=== PATIENT | male | born 1950 | race Caucasian/White ===

== ENCOUNTER → 2023-12-31 12:57 | Outpatient (REF) | payer MEDICARE, SELFPAY ==
[2023-12-31 13:52] LABS: % Basophils 0.5 % (0-2); % Eosinophils 1.8 % (0-6); % Immature Granulocytes 0.2 % (0-0.5); % Lymphocytes 25.7 % (20.5-51.1); % Monocytes 12.9 % (1.7-9.3); % Neutrophils 58.9 % (42.2-75.2); Absolute Eosinophils 0.1 10^3/uL (0-0.7); Absolute Lymphocytes 1.1 10^3/uL (1.2-3.4); Absolute Monocytes 0.6 10^3/uL (0.1-0.6); Absolute Neutrophils 2.6 10^3/uL (1.4-6.5); Hematocrit 36.5 % (39.0-52.0); Hemoglobin 12.1 g/dL (13.0-18.0); Mean Corp Hgb Conc. 33.2 g/dL (33.0-37.0); Mean Corpuscular Hgb 28.8 pg (27.0-31.0); Mean Corpuscular Volume 86.9 fL (80.0-94.0); Mean Platelet Volume 10.9 fL (7.4-10.4); Nucleated Red Blood Cells % 0 % (-); Platelet Count 116 10^3/uL (130-400); Red Cell Dist. Width 16.2 % (11.5-14.5); White Blood Cell Count 4.4 10^3/uL (4.8-10.8)
[2023-12-31 14:26] LABS: ALT (SGPT) 17 U/L (0-50); AST (SGOT) 23 U/L (17-59); Albumin 3.6 g/dl (3.5-5.0); Alkaline Phosphatase 51 U/L (38-126); Blood Urea Nitrogen 30 mg/dl (9-20); Carbon Dioxide 26 mmol/L (22-30); Chloride 107 mmol/L (98-107); Glucose 83 mg/dl (70-99); Potassium 3.9 mmol/L (3.5-5.1); Sodium 137 mmol/L (135-145); Total Bilirubin 0.7 mg/dl (0.2-1.3); Total Protein 5.8 g/dl (6.3-8.2); eGFR 36.79
[2023-12-31 14:47] LABS: Erythrocyte Sed Rate 9 mm/hour (0-20)
== END ==
LOC: OLABMERCHI 12:57
PROVIDERS: ATTENDING PHYSICIAN Hospitalist
DX: L40.9 Psoriasis, unspecified (principal); M45.2 Ankylosing spondylitis of cervical region
CPT/HCPCS: 36415; 80053; 85025; 85652; 86140

== ENCOUNTER 2024-01-11 23:13 | Inpatient (IN) | payer MEDICARE, SELFPAY ==
[2024-01-11 21:10] VITALS: BMI 22.2
[2024-01-11 21:13] VITALS: BP 179/102
[2024-01-11 21:16] VITALS: BP 165/89
[2024-01-11 21:24] LABS: % Basophils 0.3 % (0-2); % Eosinophils 0.4 % (0-6); % Immature Granulocytes 0.3 % (0-0.5); % Lymphocytes 10.3 % (20.5-51.1); % Monocytes 11.3 % (1.7-9.3); % Neutrophils 77.4 % (42.2-75.2); Absolute Lymphocytes 0.8 10^3/uL (1.2-3.4); Absolute Monocytes 0.8 10^3/uL (0.1-0.6); Absolute Neutrophils 5.8 10^3/uL (1.4-6.5); Hematocrit 37.2 % (39.0-52.0); Hemoglobin 12.5 g/dL (13.0-18.0); Mean Corp Hgb Conc. 33.6 g/dL (33.0-37.0); Mean Corpuscular Hgb 29.1 pg (27.0-31.0); Mean Corpuscular Volume 86.5 fL (80.0-94.0); Mean Platelet Volume 9.4 fL (7.4-10.4); Nucleated Red Blood Cells % 0 % (-); Platelet Count 201 10^3/uL (130-400); White Blood Cell Count 7.5 10^3/uL (4.8-10.8)
[2024-01-11 21:39] LABS: ALT (SGPT) 17 U/L (0-50); AST (SGOT) 21 U/L (17-59); Albumin 4.4 g/dl (3.5-5.0); Alkaline Phosphatase 61 U/L (38-126); Blood Urea Nitrogen 31 mg/dl (9-20); Calcium 9.4 mg/dl (8.4-10.2); Carbon Dioxide 23 mmol/L (22-30); Chloride 100 mmol/L (98-107); Estimated Creatinine Clearance 39 ml/min; Glucose 143 mg/dl (70-99); Potassium 3.9 mmol/L (3.5-5.1); Sodium 135 mmol/L (135-145); Total Bilirubin 0.5 mg/dl (0.2-1.3); Total Protein 6.7 g/dl (6.3-8.2); eGFR 45.21
--- NOTE | 2024-01-11 21:41 | ED.GENMED ---
History of Present Illness
General
Chief Complaint: Male Genito-Urinary Symptoms
Source: patient
Exam Limitations: none
Time Seen by Provider: 01/11/24 21:30
Travel History
Have you had any contact with someone who has COVID-19?: No
Do you have any symptoms of coronavirus? Fever > 100 degrees, chills, cough, shortness of breath, sore throat, loss of taste or smell, muscle aches, or headache?: No
History of Present Illness
History of Present Illness:
This is a 73 year old male that comes in with c/o hematuria. States that he bleed from his Penis all night. States that this started yesterday and has continued. States that he does have burning with urination. States that he has had a catheter in
the past. States that he also has had diarrhea. Denies any fever, chills, chest pain, SOB, abd pain, nasuea, vomiting, headache, dizziness.
Past History
Past History
ED Past Medical History: CAD, Cancer (Prostate CA), HTN, Hypercholesterolemia, NIDDM and Other (Aphasia, Psoriasis, Anemia, Ulcers)
ED Past Surgical History: Cardiac (Stent), Orthopedic (Right knee surgery), Tonsilectomy, Urological (Prostatectomy) and Other (Cataracts, Hernia repair)
Social History
Tobacco: Former smoker
Alcohol: None
Personal: Single
Living: shelter
Review of Systems
Review of Systems
All Other Systems: ROS reviewed and negative except as documented in HPI and ROS
Constitutional: Reports no symptoms; Denies fever or chills
EENT: Reports no symptoms
Respiratory: Reports no symptoms; Denies cough or trouble breathing
Cardiac: Reports no symptoms; Denies chest pain
ABD/GI: Reports diarrhea; Denies abdominal pain, nausea or vomiting
: Reports dysuria and bleeding (Hematuria)
Musculoskeletal: Reports no symptoms
Skin: Reports no symptoms
Neurological: Reports no symptoms; Denies dizzy or headache
Psychiatric: Reports no symptoms
Phy Exam
General Physical Exam
General Presentation: no apparent distress
General age: appears stated age
General Skin: warm and dry
General Habitus: elderly
General Mental: alert
General Hydration: dry mucous membranes
ENT Exam
ENT Exam: TM's normal, pharynx normal and neck supple
Eye Exam
Eye Exam: EOMI
Cardiovascular Exam
Cardiovascular Exam: regular rate/rhythm, no edema, normal peripheral pulses and other (Murmur)
Pulmonary Exam
Pulmonary Exam: lungs clear, no respiratory distress, no rales, chest non tender, no crackles, no rhonchi, no wheezing and no cough
Gastrointestinal Exam
Gastrointestinal Exam: normal bowel sounds, non tender, soft, no pulsatile mass, non distended and other (bladder distention. one finger width below the naval)
Musculoskeletal Exam
Musculoskeletal Exam: full ROM and no edema
Skin Exam
Skin Exam: normal color, warm/dry, no petechia and other (Psoriasis noted on the legs)
Psychiatric Exam
Psychiatric Exam: normal mood/affect
Course
Orders/Labs/Results
Orders:
Orders
01/11/24 21:15
Urinalysis Reflex To Culture Urgent
Date Specimen was Collected: 01/11/24
Time Specimen was Collected: 21:15
01/11/24 21:18
Complete Blood Count/With Diff Urgent
Comprehensive Metabolic Panel Urgent
01/11/24 21:41
Bladder Scan- Treatment ONCE
01/11/24 21:42
0.9% Sodium Chloride 500 ml [Nss] 500 ml IV BOLUS
Abnormal Lab Results
01/11/24
21:18
RBC 4.30 L 10^6/uL
(4.70-6.10)
Hgb 12.5 L g/dL
(13.0-18.0)
Hct 37.2 L %
(39.0-52.0)
RDW 17.0 H %
(11.5-14.5)
Absolute Lymphs (auto) 0.8 L 10^3/uL
(1.2-3.4)
Absolute Monos (auto) 0.8 H 10^3/uL
(0.1-0.6)
Neutrophils % 77.4 H %
(42.2-75.2)
Lymphocytes % 10.3 L %
(20.5-51.1)
Monocytes % 11.3 H %
(1.7-9.3)
BUN 31 H mg/dl
(9-20)
Creatinine 1.6 H mg/dL
(0.7-1.3)
Glucose 143 H mg/dl
(70-99)
01/11/24 21:18
01/11/24 21:18
H/H slightly low but improved from prior labs, Chronic renal insufficiency, Glucose nonfasting.
Vital Signs
Initial and Last Documented VS:
Initial Vital Signs
Temp Pulse Resp BP Pulse Ox
98.5 F 87 18 179/102 95
01/11/24 21:13 01/11/24 21:13 01/11/24 21:13 01/11/24 21:13 01/11/24 21:13
Last Documented Vital Signs
Temp Pulse Resp BP Pulse Ox
98.5 F 87 18 179/102 95
01/11/24 21:13 01/11/24 21:13 01/11/24 21:13 01/11/24 21:13 01/11/24 21:13
MDM/Problems Addressed
Differential Diagnosis Includes:
Hematuria. UTI,
MDM/Problems Addressed:
This is a 73 year old male that comes in with c/o hematuria. states that this started yesterday and he bleed all night.
Will get labs and bladder scan. Three way catheter placed as has urinary retention with gross hematuria. Will admit. Hospitalist notified and patient and family aware.
Chronic conditions affecting care: Cancer (Prostate)
Acute Exacerbation and/or Progression of Chronic Illness: Cancer
*Pulse Oximetry
Patient hypoxic: no
*EKG
Interpreted by ED Provider?: NA
Rate: EKG- N/A
*Map Editor Interpretation
Rate: Map Editor- N/A
*Critical Care Note
Total Time (30-74mins, 75-104mins- exclusive of procedures): Not Applicable
ED Attending Note
-
Portions of this chart may have been created with voice recognition software.� Occasional wrong word or��sound alike� substitutions may have occurred due to the inherent limitations of voice recognition software.
Discharge Plan
Departure
Prescriptions:
No Action
acetaminophen [Tylenol] 325 mg Tablet
650 mg PO Q6HPRN PRN (Reason: mild pain/fever)
dicyclomine 20 mg Tablet
20 mg PO BID@0800,1700
ammonium lactate 12 % Cream
1 applic TOPICAL BID
rosuvastatin [Crestor] 40 mg Tablet
40 mg PO HS
Anti-Itch (menthol-camphor) 0.5-0.5 % Lotion
1 applic TOPICAL QID PRN (Reason: itch)
Rx Instructions:
apply to affected area
sertraline 50 mg Tablet
100 mg PO DAILY
clopidogrel 75 mg tablet
75 mg PO DAILY
loperamide 2 mg Capsule
2 mg PO DAILY
polyethylene glycol 3350 [Miralax] 17 gram Powder In Packet
17 g PO DAILY
ciclopirox 8 % Solution
1 applic TOPICAL DAILY
Rx Instructions:
apply to right first and second toenail
mirtazapine 15 mg Tablet
15 mg PO HS
ketoconazole 2 % cream
1 applic TOPICAL BID
Rx Instructions:
apply to bilateral feet and toes
Healthy Eyes SuperVision2 250-90-10-1 mg Capsule
1 cap PO DAILY
Pedinol
1 applic topical BID
Rx Instructions:
apply to bilateral feet and toes
Referrals:
UNKNOWN - PT DOES,NOT KNOW [Family Provider] -
Interventions
Interventions:
*Risk Screen - Suicide Last Done: 01/11/24 21:14
*General Assessment Last Done: 01/11/24 21:14
*Neglect/Abuse Screening Last Done: 01/11/24 21:14
*ED COVID-19 Vaccine History Last Done: 01/11/24 21:14
[2024-01-11 22:00] VITALS: BP 140/93
[2024-01-11 22:26] LABS: Urine Albumin 3+ (Neg - Trace); Urine Bilirubin Negative (Negative); Urine Character Bloody (Clear); Urine Color Red; Urine Glucose Negative (Negative); Urine Ketone Trace (Negative); Urine Leukocyte Negative (Negative); Urine Nitrite Negative (Negative); Urine Occult Blood 4+ (Negative); Urine Urobilinogen Negative (Neg - 1+)
[2024-01-11 22:28] LABS: Urine Red Blood Cell >100 /HPF (0-2)
[2024-01-11 22:30] LABS: Urine Bacteria Moderate (Negative)
--- NOTE | 2024-01-11 22:44 | HPS.HSE ---
Addendum entered and electronically signed by Marlon Wheeler MD 01/11/24 23:15:
I saw and examined the patient.
The [employer] or PA's note was reviewed and I agree with the note.
Comment:
HPI
73M HX Prostate cancer s/p prostatectomy and salvage XRT , HX admission with hematuria presumed due to plavix pw bleeding frompenis overnight and continued today.
Reports dysuria prior to onset of hematuria.
Denies any fever, chills
Gross hematuric before CBI irrigation at ER - seems clearing with irrigation now punch color
Bladder scan [address]
PHx
CAD with stent
Prostate CA s/p prostatectomy and salvage XRT
HTN
Hypercholesterolemia
NIDDM
Aphasia
Psoriasis
Anemia
Ulcers
Reviewed VS: unremarkable
Data
nl WCC
Hgb 12.5
Cr 1.6 - 1.9 on 12/31/23
UA > 100 RBCs UCx
Last hospitalist admission: 09/07/23 - 09/12/23
DC Dx: Hematuria likely exacerbated by Plavix
ASSESSMENT & PLAN
Recurrence of gross hematuria with urinary retention - last dose of Plavix in the morning
Prostate cancer s/p prostatectomy and salvage radiation therapy: PSA undetectable
Uncertain UTI or what not - afebrile with nl WCC
- Gross hematuric before CBI irrigation at ER - seems clearing with irrigation now punch color
- Bladder scan [address] placement
- held Plavix
- empiric IV CFTX nevertheless
- f/u UCx
- cont CBI
- Uro consult
Suspect obstructive nephropathy due to clot retention with elevated Cr
- normal Creatinine in Aug 2023
- CBI drainage and tend Cr
HX CAD s/p Stent few yrs ago
HX TIA
- held Plavix
Hyperlipidemia
- on Crestor
DMT2
- add ISS low
Anxiety / Depression
- on mirtazapine and sertraline
DVT Px: SCD
Code: Full code
IP MS
Original Note:
Family Physician
-
Family Physician: NOT KNOW UNKNOWN - PT DOES
Chief Complaint
-
Hematuria
History of Present Illness
Patient is a 73 y/o male with PMH of prostate CA, CAD s/p stent and possible TIA on clopidogrel who presented to the ED complaining of gross hematuria since yesterday. Patient was in contact with his urologist who recommended increasing his oral
fluid intake. However patient developed worsening bleeding with associated urinary retention which prompted him to the come to the ED. Patient was found to have 500ml of urine in his bladder at which time a 3-way catheter was placed, and patient
was started on CBI. Patient notes prior to onset of hematuria he did note some dysuria. He denies fevers. He admits to similar episode in August 2023 at which time it was felt hematuria was related to UTI vs radiation cystitis.
Medical History
Past Medical History
Past Medical History: Reports Other
Additional Past Medical History:
Coronary Artery Disease s/p Stent
Transient Ischemic Attack
Essential Hypertension
Hyperlipidemia
Diabetes Mellitus, Type II
Baseline Expressive Aphasia following hypoglycemic event
Ankylosing Spondylitis
Psoriasis
Bowel/Bladder Incontinence
Prostate CA s/p Prostatectomy and Radiation
Past Surgical History: Reports Other
Additional Past Surgical History:
Prostatectomy
Social History
Tobacco: Non-smoker
Alcohol: None
Drug: None
Living: Assisted Living ([facility])
Family History
Family History: Other (Father: Colon Cancer, Heart Disease; Mother: Leukemia, at age 102)
Allergies / Home Medications
Allergies reflects when Allergies were last updated in [employer].
Home Medications with original date entered in [employer]
Allergy/Medication List:
Allergies
Allergy/AdvReac Type Severity Reaction Status Date / Time
No Known Allergies Allergy Verified 09/07/23 15:36
Home Medications
acetaminophen 325 mg tablet (Tylenol) 650 mg PO Q6HPRN PRN mild pain/fever 04/10/23
ammonium lactate 12 % topical cream 1 applic topical BID BOTH FEET 04/10/23
dicyclomine 20 mg tablet 20 mg PO BID@0800,1700 Gastrointestinal Issue 04/10/23
rosuvastatin 40 mg tablet (Crestor) 40 mg PO HS Gastrointestinal Issue 04/10/23
camphor-menthol 0.5 %-0.5 % lotion (Anti-Itch (menthol-camphor)) 1 applic topical QID PRN itch 09/07/23
sertraline 50 mg tablet 100 mg PO DAILY Diabetes 09/07/23
clopidogrel 75 mg tablet 75 mg PO DAILY Blood Clot Prevention/Tx 09/08/23
Pedinol 1 applic topical BID 01/11/24
ciclopirox 8 % topical solution 1 applic topical DAILY 01/11/24
ketoconazole 2 % topical cream 1 applic topical BID 01/11/24
loperamide 2 mg capsule 2 mg PO DAILY 01/11/24
mirtazapine 15 mg tablet 15 mg PO HS 01/11/24
polyethylene glycol 3350 17 gram oral powder packet (Miralax) 17 g PO DAILY 01/11/24
vit C 250 mg-vit E 90 mg-zinc 10 mg-copper 1 [id number] capsule (Healthy Eyes SuperVision2) 1 cap PO DAILY 01/11/24
Review of Systems
-
A 12 point ROS was completed and negative except as noted: Yes
Constitutional: Denies Fever or Chills
Respiratory: Denies Cough or Trouble Breathing
Cardiac: Denies Chest Pain or Palpitations
: Reports See HPI
Physical Exam
Vital Signs
Vital Signs
Temp Pulse Resp BP Pulse Ox
98.5 F 87 18 140/93 95
01/11/24 21:13 01/11/24 21:13 01/11/24 21:13 01/11/24 22:00 01/11/24 22:15
Physical Exam
General: Comfortable and Conversant
HEENT: Anicteric and Moist mucous membranes
Respiratory: Clear and Non Labored Respirations
Cardiac: S1/S2 and Regular Rhythm
GI: Soft and Non Tender
Genito-urinary: Bloody Urine and Continuous Bladder Irrigation
Skin: Warm and Dry
Neuro: Awake, Alert, Oriented and Nonfocal/grossly intact
Laboratory Results
-
01/11/24 21:18
01/11/24 21:18
Laboratory Results
Total Bilirubin 0.5 mg/dl (0.2-1.3) 01/11/24 21:18
AST 21 U/L (17-59) 01/11/24 21:18
ALT 17 U/L (0-50) 01/11/24 21:18
Alkaline Phosphatase 61 U/L (38-126) 01/11/24 21:18
Data Reviewed
-
Lab Data: Labs Reviewed by me
Old Records: Reviewed
Impression/Plan
-
Gross Hematuria, possible UTI vs Radiation Cystitis
-Consult Urology
-Continue CBI
-Continue Rocephin
-Await urine culture
Elevated Creatinine -
-Patient had normal Creatinine in Aug 2023
-Creatinine noted to be higher on outpatient labs from Oct 2023
-Continue to monitor creatinine
Coronary Artery Disease s/p Stent
Transient Ischemic Attack
-Plavix on hold due to hematuria
Hyperlipidemia
-Continue Crestor
Diabetes Mellitus, Type II
-Monitor sugars and continue coverage insulin
Anxiety / Depression
-Continue mirtazapine and sertraline
Other Noted History
-Bowel/Bladder Incontinence
-Ankylosing Spondylitis
-Prostate CA s/p Prostatectomy and Radiation
-Baseline Expressive Aphasia following hypoglycemic event
DVT proph: SCDS
Code Status: Full Code
[2024-01-11 23:00] VITALS: BP 105/73
[2024-01-11 23:51] LABS: Glucose - Point of Care 121 mg/dl (70-99)
[2024-01-12 00:15] VITALS: BP 162/97; BMI 20.4
[2024-01-12] MEDS: ROCEPHIN 1000 MG IV ×2 (00:34→23:14)
[2024-01-12] MEDS: STERILE WATER FOR INJECTION 10 ML IV ×2 (00:34→23:14)
[2024-01-12] MEDS: NSS 1000 IV (00:34)
--- NOTE | 2024-01-12 01:06 | PTCARENOTE ---
pt was admitted from ED at approx 23:30 with CBI, 18fr 3way bullock. Urine fruit punch in color. DOCUMENT PROCESSING SPECIALIST notified irrigation &CBI order needed, CBI wide open however minimal urine noted in bullock drain bag, irrigation is required. Pt c/o soreness at the
bullock insertion site and is refusing pain medication. pt educated and accepted prn Tylenol for his discomfort. Pt oriented to unit
[2024-01-12] MEDS: TYLENOL 650 MG PO ×2 (02:11→21:02)
[2024-01-12 06:00] VITALS: BMI 20.4
[2024-01-12 06:55] LABS: Hematocrit 38.3 % (39.0-52.0); Hemoglobin 12.4 g/dL (13.0-18.0); Mean Corp Hgb Conc. 32.4 g/dL (33.0-37.0); Mean Corpuscular Hgb 28.9 pg (27.0-31.0); Mean Corpuscular Volume 89.3 fL (80.0-94.0); Mean Platelet Volume 10.3 fL (7.4-10.4); Platelet Count 202 10^3/uL (130-400); Red Blood Cell Count 4.29 10^6/uL (4.70-6.10); Red Cell Dist. Width 17.2 % (11.5-14.5); White Blood Cell Count 10.5 10^3/uL (4.8-10.8)
[2024-01-12 07:26] LABS: Blood Urea Nitrogen 29 mg/dl (9-20); Calcium 9.1 mg/dl (8.4-10.2); Carbon Dioxide 25 mmol/L (22-30); Chloride 107 mmol/L (98-107); Estimated Creatinine Clearance 34 ml/min; Glucose 126 mg/dl (70-99); Magnesium 2.2 mg/dl (1.6-2.3); Potassium 5.1 mmol/L (3.5-5.1); Sodium 138 mmol/L (135-145); eGFR 42.04
[2024-01-12 07:40] VITALS: BP 117/61
[2024-01-12 07:55] LABS: Glucose - Point of Care 119 mg/dl (70-99)
[2024-01-12] MEDS: NOVOLOG FLEXPEN-LOW RESISTANCE SC ×3 (08:22→17:38)
[2024-01-12] MEDS: BENTYL 20 MG PO ×2 (08:22→16:05)
[2024-01-12] MEDS: ZOLOFT 100 MG PO (08:22)
[2024-01-12] MEDS: MIRALAX 17 GRAMS PO (08:23)
[2024-01-12 08:32] LABS: Glycohemoglobin (HgbA1c) 6.3 % (4.0-5.6)
--- NOTE | 2024-01-12 08:45 | W.PN.URO.CBU ---
Today's Communication / Plan
-
try and wean off cbi by am wed and if free of major clots remove bullock
Assessment / Plan
-
hematira in pt with h/o radiation cystitis and on plavix will check cxs an hold plavix As urin is free of bleeding nw will try and wean off cbi in am amd remove bullock if possible Also pt cardiac stents decade go cn we stop plavix ?
Diagnosis
-
Date of Service: January 12, 2024
-
Patient Diagnosis:hematuria on plavix with prev h/aoradiation cystitis for prostate cancer xrt had partial retention on arrival
Post Op Day:
Subjective
-
urine clear no clots
Objective
-
Vital Signs
Temp Pulse Resp BP Pulse Ox
97.6 F 50 16 117/61 99
01/12/24 07:40 01/12/24 07:40 01/12/24 07:40 01/12/24 07:40 01/12/24 07:40
Intake and Output
01/11/24 01/12/24 01/13/24
06:59 06:59 06:59
Output Total 1360 / 1360
Balance -1360 / -1360
Output:
True Urine Output from CBI 1360 / 1360
Laboratory Results
01/12/24 05:57
01/12/24 05:57
Review of Systems
-
: Difficulty Voiding and Bleeding
Physical Exam
-
General - well developed, well nourished, no acute distress
Chest - clear bilaterally
Abdomen - soft, non-tender, positive bowel sounds, no CVAT, no incisional pain or distention
Genitalia - normal
Rectal - normal
Skin - warm & dry with no rash
Neuro - AOx3, no motor deficits
Extremities - no clubbing, no cyanosis, no edema
Incision - clean, dry
Dressing - clean, dry, intact
Counseling
-
wean cbi
Care Review
Data Reviewed
Discussed with: Nursing
--- NOTE | 2024-01-12 09:49 | W.PN.HOSP.TC ---
Today's Communication/Plan
-
see AP
Assessment / Plan
Assessment / Plan
73 y/o male with PMH of prostate CA, CAD s/p stent and possible TIA on clopidogrel who presented to the ED complaining of gross hematuria since the day [employer]ICER. Patient was in contact with his urologist who recommended increasing his oral fluid
intake.�However patient developed worsening bleeding with associated urinary retention which prompted him to the come to the ED.�Patient was found to have 500ml of urine in his bladder at which time a 3-way catheter was placed, and patient was
started on CBI.� Patient notes prior to onset of hematuria he did note some dysuria.�He denies fevers.� He admits to similar episode in August 2023 at which time it was felt hematuria was related to UTI vs radiation cystitis.
A/P:
# Gross Hematuria, possible UTI vs Radiation Cystitis
Urology on board, recc to hold Plavix, will attempt to wean off CBI
Await urine culture, Continue Rocephin
# Elevated Creatinine, likely CKD stage 3
Patient had normal Creatinine in Aug 2023. Creatinine noted to be higher on outpatient labs from Oct 2023
Continue to monitor creatinine
# Coronary Artery Disease s/p Stent
# Transient Ischemic Attack
Plavix on hold due to hematuria
# Hyperlipidemia
Continue Crestor
# Diabetes Mellitus, Type II
Monitor sugars and continue coverage insulin
# Anxiety / Depression
Continue mirtazapine and sertraline
Other Noted History
# Bowel/Bladder Incontinence
# Ankylosing Spondylitis
# Prostate CA s/p Prostatectomy and Radiation
# Baseline Expressive Aphasia following hypoglycemic event
DVT proph: SCDS
Code Status: Full Code
PT OT eval
Anticipated Discharge: 24 - 48 hours
Subjective/Interval History
-
Date of Service: January 12, 2024
Objective Data
-
Labs:
Laboratory Results
03/19/24
05:57
WBC 10.5
Hgb 12.4 L
Hct 38.3 L
Plt Count 202
Sodium 138
Potassium 5.1 D
Chloride 107
Carbon Dioxide 25
BUN 29 H
Creatinine 1.7 H
Glucose 126 H
Calcium 9.1
Vital Signs:
Vital Signs
Temp Pulse Resp BP Pulse Ox
36.4 C 50 16 117/61 99
01/12/24 07:40 01/12/24 07:40 01/12/24 07:40 01/12/24 07:40 01/12/24 07:40
I&O
01/11/24 01/12/24 01/13/24
06:59 06:59 06:59
Output Total 1360 / 1360
Balance -1360 / -1360
Review of Systems
-
Genitourinary: Reports Bleeding
Physical Exam
-
General: Well Developed, Well Nourished, No Apparent Distress, Comfortable and Appears Chronically Ill
HEENT: Normocephalic and Atraumatic
Respiratory: Clear to Auscultation and Non Labored Respirations; Negative Wheezes, Rhonchi or Accessory Resp Muscle Use
Cardiac: Regular Rhythm and S1/S2; Negative Murmur
GI: Soft, Nontender, Nondistended and Normal Bowel Sounds
Genito-urinary: Bloody Urine (but clearing ) and Continuous Bladder Irrigation
Musculoskeletal: No Clubbing, No Cyanosis and No Edema
Skin: Warm
Neuro: Awake
Psych: Calm and Intact Judgement/Insight
Data Reviewed
-
Labs: Labs Reviewed by me
[2024-01-12 11:58] LABS: Glucose - Point of Care 248 mg/dl (70-99)
[2024-01-12] MEDS: NOVOLOG FLEXPEN-LOW RESISTANCE 2 UNITS SC (12:30)
[2024-01-12 12:43] VITALS: BP 112/60; BP 122/61; BP 138/62; PULSE 59; O2SAT 99
[2024-01-12 12:45] VITALS: BP 112/60; BP 122/61; PULSE 57; PULSE 64
--- NOTE | 2024-01-12 12:59 | CM ---
Patient was seen at bedside. Patient from [facility]. CM spoke with ZARINA Ramey at personal care facility. Per staff patient is able to walk about 125ft with rolling walker, however, patient sometimes states he cannot do something when he can.
Patient currently has bullock and per Karoline patient will need to be assessed prior to return to personal care facility by the DON. CM will continue to follow for discharge planning needs.
plan; SNF vs personal care return.
[2024-01-12 15:30] VITALS: BP 105/58
[2024-01-12 17:06] LABS: Glucose - Point of Care 101 mg/dl (70-99)
[2024-01-12] MEDS: REMERON 15 MG PO (20:58)
[2024-01-12] MEDS: CRESTOR 40 MG PO (20:58)
[2024-01-12 21:34] LABS: Glucose - Point of Care 139 mg/dl (70-99)
[2024-01-12 23:00] VITALS: BP 102/56
[2024-01-13 05:11] LABS: Hemoglobin 11.3 g/dL (13.0-18.0); Mean Corp Hgb Conc. 32.3 g/dL (33.0-37.0); Mean Corpuscular Hgb 28.8 pg (27.0-31.0); Mean Corpuscular Volume 89.3 fL (80.0-94.0); Mean Platelet Volume 10.1 fL (7.4-10.4); Platelet Count 164 10^3/uL (130-400); Red Blood Cell Count 3.92 10^6/uL (4.70-6.10); Red Cell Dist. Width 17.2 % (11.5-14.5)
[2024-01-13 05:47] LABS: Blood Urea Nitrogen 28 mg/dl (9-20); Carbon Dioxide 27 mmol/L (22-30); Chloride 106 mmol/L (98-107); Estimated Creatinine Clearance 36 ml/min; Glucose 98 mg/dl (70-99); Magnesium 2.1 mg/dl (1.6-2.3); Potassium 4.1 mmol/L (3.5-5.1); Sodium 137 mmol/L (135-145); eGFR 45.21
[2024-01-13 07:35] VITALS: BP 122/62
[2024-01-13 08:03] LABS: Glucose - Point of Care 109 mg/dl (70-99)
[2024-01-13] MEDS: NOVOLOG FLEXPEN-LOW RESISTANCE SC ×3 (09:11→18:47)
[2024-01-13] MEDS: MIRALAX 17 GRAMS PO (09:15)
[2024-01-13] MEDS: ZOLOFT 100 MG PO (09:15)
[2024-01-13] MEDS: BENTYL 20 MG PO ×3 (09:15→19:39)
--- NOTE | 2024-01-13 09:35 | W.PN.HOSP.TC ---
Today's Communication/Plan
-
see A/P
Assessment / Plan
Assessment / Plan
73 y/o male with PMH of prostate CA, CAD s/p stent and possible TIA on clopidogrel who presented to the ED complaining of gross hematuria since the day [employer]LECT[employer]. Patient was in contact with his urologist who recommended increasing his oral fluid
intake.�However patient developed worsening bleeding with associated urinary retention which prompted him to the come to the ED.�Patient was found to have 500ml of urine in his bladder at which time a 3-way catheter was placed, and patient was
started on CBI.� Patient notes prior to onset of hematuria he did note some dysuria.�He denies fevers.� He admits to similar episode in August 2023 at which time it was felt hematuria was related to UTI vs radiation cystitis.
A/P:
# Gross Hematuria, most likely due to Radiation Cystitis per Uro, complicated UTI may also contribute
Urology on board, recc to hold Plavix
Off CBI today, and DC bullock for TOV per Uro
Cont Bladder scan for voiding trial
Await urine culture, Continue Rocephin
# Now likely with CKD stage 3
Patient had normal Creatinine in Aug 2023. Creatinine noted to be higher on outpatient labs from Oct 2023
Continue to monitor creatinine, has been stable at 1.6 today
# Coronary Artery Disease s/p Stent
# Transient Ischemic Attack
Pt states that he takes Plavix [employer] for his previous cardiac stent. He states that he is NOT on it for TIA.
Pt sees OS deputy director, he is unsure who. Called his family member several times to get info on this, calls not answered
ELECT[employer] RECYCLER Plavix on hold due to hematuria. Uro preferring to hold going forward due to high risk of recurrent hematuria.
For now, hold plavix. Would recc outpt eval with OS deputy director to discuss if Plavix could be discontinued or not.
# Hyperlipidemia
Continue Crestor
# Diabetes Mellitus, Type II
Monitor sugars and continue coverage insulin
# Anxiety / Depression
Continue mirtazapine and sertraline
Other Noted History
# Bowel/Bladder Incontinence
# Ankylosing Spondylitis
# Prostate CA s/p Prostatectomy and Radiation
# Baseline Expressive Aphasia following hypoglycemic event
DVT proph: SCDS
Code Status: Full Code
PT OT recc HH
DW Uro
called pt's cousin several times, calls did not go through
total time spent 51 min
Anticipated Discharge: Within 24 hours
Subjective/Interval History
-
Date of Service: January 13, 2024
Objective Data
-
Labs:
Laboratory Results
01/13/24
04:08
WBC 6.0
Hgb 11.3 L
Hct 35.0 L
Plt Count 164
Sodium 137
Potassium 4.1
Chloride 106
Carbon Dioxide 27
BUN 28 H
Creatinine 1.6 H
Glucose 98
Calcium 9.0
Vital Signs:
Vital Signs
Temp Pulse Resp BP Pulse Ox
36.7 C 44 16 122/62 99
01/13/24 07:35 01/13/24 07:35 01/13/24 07:35 01/13/24 07:35 01/13/24 07:35
I&O
01/12/24 01/13/24 01/14/24
06:59 06:59 06:59
Intake Total 1680 / 1680
Output Total 1360 / 1360 800 / 800
Balance -1360 / -1360 880 / 880
Review of Systems
-
Unable to obtain full review of systems at this time due to: Other (cognitive impairment)
All other systems: Reviewed and negative
Physical Exam
-
General: Well Developed, Well Nourished, No Apparent Distress, Comfortable and Appears Chronically Ill
HEENT: Normocephalic and Atraumatic
Respiratory: Clear to Auscultation and Non Labored Respirations; Negative Wheezes, Rhonchi or Accessory Resp Muscle Use
Cardiac: Regular Rhythm and S1/S2; Negative Murmur
GI: Soft, Nontender, Nondistended and Normal Bowel Sounds
Genito-urinary: Bloody Urine (clearing ), Bullock and Continuous Bladder Irrigation
Musculoskeletal: No Clubbing, No Cyanosis and No Edema
Skin: Warm
Neuro: Awake
Psych: Calm and Other (suspect mild cognitive impairment )
Data Reviewed
-
Labs: Labs Reviewed by me
--- NOTE | 2024-01-13 10:03 | W.PN.URO.CBU ---
Today's Communication / Plan
-
fill bladder remove bullock call if no void
Assessment / Plan
-
hematira in pt with h/o radiation cystitis and on plavix will check cxs an hold plavix As urine is free of hrm aturia will remove bullock selene speak with medicone about changing plavix for asa but willhold plavix for several more days
regardles due petra hematuria
Diagnosis
-
Date of Service: January 13, 2024
-
Patient Diagnosis:
Post Op Day:
Patient Diagnosis:hematuria on plavix with prev h/aoradiation cystitis for prostate cancer xrt had partial retention on arrival
Post Op Day:
Subjective
-
no hematuria off cbi
Objective
-
Vital Signs
Temp Pulse Resp BP Pulse Ox
98.0 F 44 16 122/62 99
01/13/24 07:35 01/13/24 07:35 01/13/24 07:35 01/13/24 07:35 01/13/24 08:00
Intake and Output
01/12/24 01/13/24 01/14/24
06:59 06:59 06:59
Intake Total 1680 / 1680
Output Total 1360 / 1360 800 / 800
Balance -1360 / -1360 880 / 880
Intake:
Oral fluids 1080 / 1080
IV fluids (Total) 600 / 600
Output:
True Urine Output from CBI 1360 / 1360 800 / 800
Laboratory Results
01/13/24 04:08
01/13/24 04:08
Review of Systems
-
: No Symptoms
Physical Exam
-
General - well developed, well nourished, no acute distress
Chest - clear bilaterally
Abdomen - soft, non-tender, positive bowel sounds, no CVAT, no incisional pain or distention
Genitalia - normal
Rectal - normal
Skin - warm & dry with no rash
Neuro - AOx3, no motor deficits
Extremities - no clubbing, no cyanosis, no edema
Incision - clean, dry
Dressing - clean, dry, intact
Counseling
-
fill bladder remove bullock call urolgy if no void
Care Review
Data Reviewed
Discussed with: Hospitalist and Nursing
[2024-01-13 11:37] LABS: Glucose - Point of Care 119 mg/dl (70-99)
[2024-01-13 12:05] VITALS: BP 136/72; BP 146/72; PULSE 48; O2SAT 100
--- NOTE | 2024-01-13 14:25 | CM ---
Addendum entered by Ninoska Gomez 01/13/24 16:20:
spoke with matthias at [facility] and they do not need to eval patient tomorrow before he returns.called rani de la fuente and asked that she return my call.tt to dr yusuf to let her know.phone number to call report is [phone] ask for nurse or med
tech.fax is [phone].pt being transferred to [facility].
Original Note:
met with patient at bedside.patient with gross hematuria,off cdi, dc bullock /voiding trial,cont iv rocephin,holding plavix.[facility] home care following patient.faxed clinicals to [facility] [phone].patient ambulated in hallways with steady
gait but had low bp.
Plan [facility] to eval patient before he returns to facility per don.
[2024-01-13 15:20] VITALS: BP 126/68
--- NOTE | 2024-01-13 16:14 | PTCARENOTE ---
Report given to RN receiving patient. Patient informed on room change. Patients questions answered. Pt states no pain at this time. Transport called to transport patient to room 403 bed 2.
[2024-01-13 16:30] VITALS: BP 147/84
--- NOTE | 2024-01-13 17:47 | PTCARENOTE ---
Patient received as a transfer from [address] [place] [address]. Patient stated to [facility] that he wanted to kill himself and relayed this to me. When questioning patient further, patient states that 'I did not mean it. I am just frustrated.' Patient placed on med sitter
and MD notified - Dr. Valdovinos. Patient with some garbled speech but is oriented to person, place and time. Patient also was incontinent of urine and stool upon arrival to unit. Perineal care provided.
[2024-01-13 18:03] LABS: Glucose - Point of Care 118 mg/dl (70-99)
[2024-01-13] MEDS: CRESTOR 40 MG PO (21:14)
[2024-01-13] MEDS: REMERON 15 MG PO (21:14)
[2024-01-13 21:42] LABS: Glucose - Point of Care 121 mg/dl (70-99)
[2024-01-13 23:43] VITALS: BP 102/57
[2024-01-13] MEDS: STERILE WATER FOR INJECTION 10 ML IV (23:49)
[2024-01-13] MEDS: ROCEPHIN 1000 MG IV (23:49)
[2024-01-14 05:02] VITALS: BMI 20.6
[2024-01-14 07:00] VITALS: BP 114/59
[2024-01-14 07:26] LABS: Glucose - Point of Care 80 mg/dl (70-99)
[2024-01-14] MEDS: NOVOLOG FLEXPEN-LOW RESISTANCE SC ×3 (07:35→17:12)
[2024-01-14 07:38] LABS: Hematocrit 35.2 % (39.0-52.0); Hemoglobin 11.8 g/dL (13.0-18.0); Mean Corp Hgb Conc. 33.5 g/dL (33.0-37.0); Mean Corpuscular Hgb 29.1 pg (27.0-31.0); Mean Corpuscular Volume 86.9 fL (80.0-94.0); Mean Platelet Volume 9.9 fL (7.4-10.4); Platelet Count 160 10^3/uL (130-400); Red Blood Cell Count 4.05 10^6/uL (4.70-6.10)
[2024-01-14 07:58] LABS: Blood Urea Nitrogen 24 mg/dl (9-20); Calcium 9.2 mg/dl (8.4-10.2); Carbon Dioxide 23 mmol/L (22-30); Chloride 107 mmol/L (98-107); Estimated Creatinine Clearance 49 ml/min; Glucose 87 mg/dl (70-99); Sodium 136 mmol/L (135-145); eGFR > 60.00
[2024-01-14] MEDS: ZOLOFT 100 MG PO (08:12)
[2024-01-14] MEDS: MIRALAX 17 GRAMS PO (08:13)
--- NOTE | 2024-01-14 09:42 | W.PN.URO.CBU ---
Today's Communication / Plan
-
home when stableon ytargeted abs
Assessment / Plan
-
hematira in pt with h/o radiation cystitis and Protus uti and on plavix will check cxs an hold plavix As urine is free of hrm aturia will remove bullock selene speak with medicone about changing plavix for asa but willhold plavix for several
more days regardles due petra hematuria try and hold plavix until january 24
Diagnosis
-
Date of Service: January 14, 2024
-
Patient Diagnosis:
Post Op Day:
Patient Diagnosis:
urine cx has proteus
Post Op Day:
Patient Diagnosis:hematuria on plavix with prev h/aoradiation cystitis for prostate cancer xrt had partial retention on arrival
Post Op Day:
Subjective
-
feels wnl no hematuria
Objective
-
Vital Signs
Temp Pulse Resp BP Pulse Ox
97.8 F 51 18 114/59 97
01/14/24 07:00 01/14/24 07:00 01/14/24 07:00 01/14/24 07:00 01/14/24 08:00
Intake and Output
01/13/24 01/14/24 01/15/24
06:59 06:59 06:59
Intake Total 1680 / 1680
Output Total 800 / 800 800 / 800
Balance 880 / 880 -800 / -800
Intake:
Oral fluids 1080 / 1080
IV fluids (Total) 600 / 600
Output:
True Urine Output from CBI 800 / 800 800 / 800
Other:
How many times incontinent 3
SATURATED amount urine
Laboratory Results
01/14/24 07:01
01/14/24 07:01
Review of Systems
-
: No Symptoms
Physical Exam
-
General - well developed, well nourished, no acute distress
Chest - clear bilaterally
Abdomen - soft, non-tender, positive bowel sounds, no CVAT, no incisional pain or distention
Genitalia - normal
Rectal - normal
Skin - warm & dry with no rash
Neuro - AOx3, no motor deficits
Extremities - no clubbing, no cyanosis, no edema
Incision - clean, dry
Dressing - clean, dry, intact
Counseling
-
per hospitalist
[2024-01-14 11:53] LABS: Glucose - Point of Care 122 mg/dl (70-99)
--- NOTE | 2024-01-14 12:00 | W.PN.HOSP.TC ---
Today's Communication/Plan
-
see A/P
Assessment / Plan
Assessment / Plan
73 y/o male with PMH of prostate CA, CAD s/p stent and possible TIA on clopidogrel who presented to the ED complaining of gross hematuria since the day WRIST HEMMER. Patient was in contact with his urologist who recommended increasing his oral fluid
intake.�However patient developed worsening bleeding with associated urinary retention which prompted him to the come to the ED.�Patient was found to have 500ml of urine in his bladder at which time a 3-way catheter was placed, and patient was
started on CBI.� Patient notes prior to onset of hematuria he did note some dysuria.�He denies fevers.� He admits to similar episode in August 2023 at which time it was felt hematuria was related to UTI vs radiation cystitis.
A/P:
# Gross Hematuria, most likely due to Radiation Cystitis per Uro, complicated UTI may also contribute
Urology on board, recc to hold Plavix
Off CBI, off bullock for TOV , pt is incontinent per RN
urine culture with Proteus, only resistant to Nitrofurantoin
Cont Ceftriaxone for now, can change to PO Keflex upon discharge
Per RN, hematuria persists, will cont to monitor hematuria and DC when resolves
# resolved QUENTIN
creatinine at 1.2 today
# Coronary Artery Disease s/p Stent
# Transient Ischemic Attack
Pt states that he takes Plavix WRIST HEMMER for his previous cardiac stent. He states that he is NOT on it for TIA.
Pt sees OS director corporate sales, he is unsure who. Called his family member several times to get info on this, calls not answered
WRIST HEMMER Plavix on hold due to hematuria. Uro preferring to hold going forward due to high risk of recurrent hematuria.
For now, hold plavix. Would recc outpt eval with OS director corporate sales to discuss if Plavix could be discontinued or not.
# Hyperlipidemia
Continue Crestor
# Diabetes Mellitus, Type II
Monitor sugars and continue coverage insulin
# Anxiety / Depression
Continue mirtazapine and sertraline
Other Noted History
# Bowel/Bladder Incontinence
# Ankylosing Spondylitis
# Prostate CA s/p Prostatectomy and Radiation
# Baseline Expressive Aphasia following hypoglycemic event
DVT proph: SCDS
Code Status: Full Code
PT OT recc HH
DW RN
Anticipated Discharge: Within 24 hours
Subjective/Interval History
-
Date of Service: January 14, 2024
Objective Data
-
Labs:
Laboratory Results
01/14/24
07:01
WBC 6.0
Hgb 11.8 L
Hct 35.2 L
Plt Count 160
Sodium 136
Potassium 4.0
Chloride 107
Carbon Dioxide 23
BUN 24 H
Creatinine 1.2
Glucose 87
Calcium 9.2
Vital Signs:
Vital Signs
Temp Pulse Resp BP Pulse Ox
36.6 C 51 18 114/59 97
01/14/24 07:00 01/14/24 07:00 01/14/24 07:00 01/14/24 07:00 01/14/24 08:00
I&O
01/13/24 01/14/24 01/15/24
06:59 06:59 06:59
Intake Total 1680 / 1680
Output Total 800 / 800 800 / 800
Balance 880 / 880 -800 / -800
Review of Systems
-
Unable to obtain full review of systems at this time due to: Other (cognitive impairment)
All other systems: Reviewed and negative
Physical Exam
-
General: Well Developed, Well Nourished, No Apparent Distress, Comfortable and Appears Chronically Ill
HEENT: Normocephalic and Atraumatic
Respiratory: Clear to Auscultation and Non Labored Respirations; Negative Wheezes, Rhonchi or Accessory Resp Muscle Use
Cardiac: Regular Rhythm and S1/S2; Negative Murmur
GI: Soft, Nontender, Nondistended and Normal Bowel Sounds
Genito-urinary: Bloody Urine and Continuous Bladder Irrigation
Musculoskeletal: No Clubbing, No Cyanosis and No Edema
Skin: Warm
Neuro: Awake
Psych: Calm and Other (suspect mild cognitive impairment )
Data Reviewed
-
Labs: Labs Reviewed by me
[2024-01-14 15:00] VITALS: BP 141/80
--- NOTE | 2024-01-14 16:06 | CM ---
CBI completed
Spoke with [facility] pt requested resume of care with [facility] care
referral placed in care port.
Return to [facility] [place].
PLAN [facility] with [facility]
[2024-01-14 16:50] LABS: Glucose - Point of Care 122 mg/dl (70-99)
[2024-01-14] MEDS: BENTYL 20 MG PO (17:16)
[2024-01-14] MEDS: TYLENOL 650 MG PO (20:58)
[2024-01-14] MEDS: CRESTOR 40 MG PO (20:59)
[2024-01-14] MEDS: REMERON 15 MG PO (20:59)
[2024-01-14 21:16] LABS: Glucose - Point of Care 114 mg/dl (70-99)
[2024-01-14] MEDS: ROCEPHIN 1000 MG IV (23:27)
[2024-01-14] MEDS: STERILE WATER FOR INJECTION 10 ML IV (23:27)
[2024-01-14 23:56] VITALS: BP 119/62
[2024-01-15 04:52] LABS: Glucose - Point of Care 87 mg/dl (70-99)
[2024-01-15 05:18] VITALS: BMI 20.3
[2024-01-15 07:18] LABS: Hematocrit 35.8 % (39.0-52.0); Hemoglobin 11.9 g/dL (13.0-18.0); Mean Corp Hgb Conc. 33.2 g/dL (33.0-37.0); Mean Corpuscular Hgb 29.1 pg (27.0-31.0); Mean Corpuscular Volume 87.5 fL (80.0-94.0); Mean Platelet Volume 9.8 fL (7.4-10.4); Platelet Count 167 10^3/uL (130-400); Red Blood Cell Count 4.09 10^6/uL (4.70-6.10); Red Cell Dist. Width 16.8 % (11.5-14.5); White Blood Cell Count 5.6 10^3/uL (4.8-10.8)
[2024-01-15 07:35] VITALS: BP 120/62
[2024-01-15 07:39] LABS: Blood Urea Nitrogen 25 mg/dl (9-20); Calcium 9.2 mg/dl (8.4-10.2); Carbon Dioxide 30 mmol/L (22-30); Chloride 103 mmol/L (98-107); Estimated Creatinine Clearance 45 ml/min; Glucose 101 mg/dl (70-99); Potassium 4.4 mmol/L (3.5-5.1); Sodium 137 mmol/L (135-145); eGFR 58.01
[2024-01-15 08:09] LABS: Glucose - Point of Care 99 mg/dl (70-99)
[2024-01-15] MEDS: BENTYL 20 MG PO ×2 (08:11→16:53)
[2024-01-15] MEDS: MIRALAX 17 GRAMS PO (08:11)
[2024-01-15] MEDS: ZOLOFT 100 MG PO (08:11)
[2024-01-15] MEDS: NOVOLOG FLEXPEN-LOW RESISTANCE SC ×3 (08:11→16:57)
[2024-01-15 11:38] LABS: Glucose - Point of Care 115 mg/dl (70-99)
--- NOTE | 2024-01-15 11:49 | W.PN.HOSP.TC ---
Addendum entered and electronically signed by Keara Valdovinos MD 01/15/24 14:34:
total DC time 40 min
Addendum entered and electronically signed by Keara Valdovinos MD 01/15/24 13:27:
Discussed with cousin on the phone, she is requesting if we could use baby aspirin in place of Plavix. This sounds reasonable. Patient can continue with baby aspirin going forward and stop Plavix.
Informed cousin that I would like the patient to follow-up with his impersonator character with regard to stopping Plavix and starting aspirin.
Original Note:
Today's Communication/Plan
-
DC home with HH
Assessment / Plan
Assessment / Plan
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 Patient was in contact with his urologist who recommended increasing his oral fluid
intake.�However patient developed worsening bleeding with associated urinary retention which prompted him to the come to the ED.�Patient was found to have 500ml of urine in his bladder at which time a 3-way catheter was placed, and patient was
started on CBI.� Patient notes prior to onset of hematuria he did note some dysuria.�He denies fevers.� He admits to similar episode in August 2023 at which time it was felt hematuria was related to UTI vs radiation cystitis.
A/P:
# Gross Hematuria, most likely due to Radiation Cystitis per Uro, complicated UTI may also contribute
Urology on board, recc to hold Plavix
Off CBI, off bullock, pt is incontinent per RN
urine culture with Proteus, only resistant to Nitrofurantoin
Cont Ceftriaxone for now, can change to PO Keflex upon discharge
Per RN, hematuria has persisted but according to Uro Dr Perez, this is not active bleeding likely just old clot, and given his Hgb remain stable, OK for discharge
# resolved QUENTIN
creatinine at 1.3 today
# Coronary Artery Disease s/p Stent
# Transient Ischemic Attack
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 He states that he is NOT on it for TIA.
Pt sees OS impersonator character, he is unsure who. Called his family member several times to get info on this, calls not answered
STEREO PLOTTER OPERATOR Plavix discontinued due to hematuria. Uro preferring to hold going forward due to high risk of recurrent hematuria.
Recc outpt eval with OS impersonator character to discuss if Plavix can be discontinued or not given stent was several years ago.
# Hyperlipidemia
Continue Crestor
# Diabetes Mellitus, Type II
Monitor sugars and continue coverage insulin
# Anxiety / Depression
Continue mirtazapine and sertraline
Other Noted History
# Bowel/Bladder Incontinence
# Ankylosing Spondylitis
# Prostate CA s/p Prostatectomy and Radiation
# Baseline Expressive Aphasia following hypoglycemic event
DVT proph: SCDS
Code Status: Full Code
PT OT recc HH
Called family several times, calls not answered. Left voice mail
Anticipated Discharge: Today
Subjective/Interval History
-
Date of Service: January 15, 2024
Objective Data
-
Labs:
Laboratory Results
01/15/24
06:34
WBC 5.6
Hgb 11.9 L
Hct 35.8 L
Plt Count 167
Sodium 137
Potassium 4.4
Chloride 103
Carbon Dioxide 30
BUN 25 H
Creatinine 1.3
Glucose 101 H
Calcium 9.2
Vital Signs:
Vital Signs
Temp Pulse Resp BP Pulse Ox
36.5 C 54 18 120/62 100
01/15/24 07:35 01/15/24 07:35 01/15/24 07:35 01/15/24 07:35 01/15/24 07:35
I&O
01/14/24 01/15/24 01/16/24
06:59 06:59 06:59
Intake Total 920 / 920
Output Total 800 / 800 300 / 300
Balance -800 / -800 620 / 620
Review of Systems
-
Unable to obtain full review of systems at this time due to: Other (cognitive impairment)
All other systems: Reviewed and negative
Physical Exam
-
General: Well Developed, Well Nourished, No Apparent Distress, Comfortable, Conversant and Appears Chronically Ill
HEENT: Normocephalic and Atraumatic
Respiratory: Clear to Auscultation and Non Labored Respirations; Negative Wheezes, Rhonchi or Accessory Resp Muscle Use
Cardiac: Regular Rhythm and S1/S2; Negative Murmur
GI: Soft, Nontender, Nondistended and Normal Bowel Sounds
Musculoskeletal: No Clubbing, No Cyanosis and No Edema
Skin: Warm
Neuro: Awake
Psych: Calm and Other (suspect mild cognitive impairment )
Data Reviewed
-
Labs: Labs Reviewed by me
--- NOTE | 2024-01-15 13:55 | CM ---
Addendum entered by Gita Jessica RN 01/15/24 16:34:
Spoke with Carrol Wallace Garwood she is not in today.
Spoke with Karoline [phone] at [facility] explained he was returning today with [facility] Report number given [phone].
Spoke with Madison de la cruz [phone] all questions answered she agrees with dc and IMM today.
She said she will drive him to [facility] after 4 pm.
[facility] report [phone] fax [phone]
[facility] fax [phone]
PLAN Return to [facility] with [facility] care
Original Note:
entered order for discharge.
Spoke with jono Wallace [phone] she agrees with pts dc. She said she will drive him to [facility] today at 4 pm.Agreed with IMM
--- NOTE | 2024-01-15 14:19 | W.DCSUMMARY ---
Discharge Summary
Discharge Data
Date of Admission: 01/11/24
Date of Discharge: 01/15/24
-
Pending Results: No
Hospital Course
Principal Diagnosis:
Gross Hematuria, most likely due to Radiation Cystitis
Complicated urinary tract infection
Acute kidney injury (QUENTIN), resolved
Chronic Diagnoses:�
Coronary Artery Disease status post stent
Transient Ischemic Attack
Hyperlipidemia, on Crestor
Diabetes Mellitus, Type II
Anxiety / Depression, on mirtazapine and sertraline
Bowel/Bladder Incontinence
Ankylosing Spondylitis
Prostate cancer status post prostatectomy and Radiation
Consultations:�
Urology
Procedures:�
None
Clinical course:�
This is a 73-year-old male with past medical history as stated above, who presented with gross hematuria.
Problem 1:
Gross Hematuria, most likely due to Radiation Cystitis.
This was associated with QUENTIN (which has resolved), and complicated urinary tract infection.
He was treated with CBI which helped cleared his urine.
His urine culture grew Proteus, and the patient received IV ceftriaxone while in the hospital.
He was discharged with oral Keflex to complete total 14 days of antibiotic course.
His prior to admission Plavix was discontinued.
In place of his prior to admission Plavix, he can start baby aspirin going forward following discharge .
He can follow-up with his urologist outpatient.
He has been informed to follow-up with his grey tender outpatient given his Plavix was switched to aspirin.
Of note, his serum creatinine down trended from 1.7 to 1.3.
As for the rest of his medical problems, they were stable during his hospital stay.
Discharge Plan
-
Patient Disposition: Home with Home Care
Discharge Diagnosis/Procedures: Gross Hematuria, most likely due to Radiation Cystitis; complicated urinary tract infection; resolved acute kidney injury
Condition: Fair
Diet: As tolerated
Activity: As tolerated
Driving Restrictions: No driving
Activity Restrictions/Additional Instructions:
discuss with your grey tender about discontinuing Plavix (and use ASA instead) since Plavix is likely causing your gross hematuria in setting of Radiation Cystitis
Referrals:
Josué Perez MD [Active] - (call dr poon4s [phone] foer follow up does not need to be seen for 1- 3 months if not having problems)
UNKNOWN - PT DOES,NOT KNOW [Family Provider] - in less than 1 week
Additional Discharge Medication Instructions: Continue Keflex for 10 more days
Stop Plavix, take baby aspirin instead
Prescriptions:
New
cephalexin 500 mg capsule
500 mg PO BID 10 Days Qty: 20 0RF
aspirin 81 mg capsule
81 mg PO DAILY Qty: 30 0RF
Continued
acetaminophen [Tylenol] 325 mg Tablet
650 mg PO Q6HPRN PRN (Reason: mild pain/fever)
dicyclomine 20 mg Tablet
20 mg PO BID@0800,1700
ammonium lactate 12 % Cream
1 applic TOPICAL BID
rosuvastatin [Crestor] 40 mg Tablet
40 mg PO HS
Anti-Itch (menthol-camphor) 0.5-0.5 % Lotion
1 applic TOPICAL QID PRN (Reason: itch)
Rx Instructions:
apply to affected area
sertraline 50 mg Tablet
100 mg PO DAILY
loperamide 2 mg Capsule
2 mg PO DAILY
polyethylene glycol 3350 [Miralax] 17 gram Powder In Packet
17 g PO DAILY
ciclopirox 8 % Solution
1 applic TOPICAL DAILY
Rx Instructions:
apply to right first and second toenail
mirtazapine 15 mg Tablet
15 mg PO HS
ketoconazole 2 % cream
1 applic TOPICAL BID
Rx Instructions:
apply to bilateral feet and toes
Healthy Eyes SuperVision2 250-90-10-1 mg Capsule
1 cap PO DAILY
Pedinol
1 applic topical BID
Rx Instructions:
apply to bilateral feet and toes
Discontinued
clopidogrel 75 mg tablet
75 mg PO DAILY
Discharge Orders:
Discharge Patient (As Directed); Ordered 01/15/24
Ordered By: eKara Valdovinos
[2024-01-15 16:00] VITALS: BP 124/66
[2024-01-15 16:47] LABS: Glucose - Point of Care 89 mg/dl (70-99)
== END 2024-01-15 17:25 | disposition home health service (06) | DRG 813 ==
LOC: 4 EAST ACU 23:13
PROVIDERS: Emergency Medicine; Physician Assistant Medical; ADMITTING PHYSICIAN Internal Medicine; ATTENDING PHYSICIAN Internal Medicine; CONSULT PHYSICIAN Specialist; EMERGENCY PHYSICIAN Emergency Medicine
DX: D68.32 Hemorrhagic disorder due to extrinsic circulating anticoagulants (principal); N17.9 Acute kidney failure, unspecified; N30.41 Irradiation cystitis with hematuria; R47.01 Aphasia; I25.10 Atherosclerotic heart disease of native coronary artery without angina pectoris; E11.9 Type 2 diabetes mellitus without complications; F32.A Depression, unspecified; F41.9 Anxiety disorder, unspecified; B96.4 Proteus (mirabilis) (morganii) as the cause of diseases classified elsewhere; E78.00 Pure hypercholesterolemia, unspecified; Y84.2 Radiological procedure and radiotherapy as the cause of abnormal reaction of the patient, or of later complication, without mention of misadventure at the time of the procedure; Z95.5 Presence of coronary angioplasty implant and graft; Z85.46 Personal history of malignant neoplasm of prostate
CPT/HCPCS: 51702; 51798; 80048; 80053; 81003; 81015; 82962; 83036; 83735; 85025; 85027; 87077; 87086; 87186; 97116; 97162; 97167; 97530; 97535; 99285

== ENCOUNTER 2024-02-23 09:11 | Emergency (ER) | payer MEDICARE, SELFPAY ==
[2024-02-23 09:12] VITALS: BP 131/73
--- NOTE | 2024-02-23 09:13 | ED.GENMED ---
History of Present Illness
General
Chief Complaint: Visual Problem
Time Seen by Provider: 02/23/24 09:13
History of Present Illness
History of Present Illness:
HPI: The patient presents with a change in vision. He states it is blurred but ongoing for the past year or so. Staff at [facility] called ambulance and brought him here for further evaluation. He has a history of traumatic brain injury and is
somewhat of a limited historian but overall gives a reasonable history.
EXAM:
GENERAL: Well appearing in no distress
HEENT: Moist oral mucosa, there is some mucopurulent discharge noted along the margins of the eyes, visual acuity is 20/50 on the right and 20/30 on the left, funduscopic exam on the right is normal and on the left is limited
CARDIOVASCULAR: No murmurs, normal heart rate, regular rhythm, No chest wall tenderness
PULMONARY: No respiratory distress, breath sounds are clear and equal
ABDOMEN: Soft with no peritoneal signs, no tenderness
NEUROLOGIC: Good strength all extremities, no coordination deficits, he easily follows commands
PSYCHIATRIC: Appropriate mental status, normal insight and judgement, he knows it is still Marce and knows he is at [facility]
EXTREMITIES: Nontender, no edema, moves all extremities equally
SKIN: No rash, no lesions
TIME OF INITIAL ENCOUNTER: 9:30 AM
NUMBER AND COMPLEXITY OF PROBLEMS ADDRESSED AT THE ENCOUNTER
� Chronic conditions affecting care: CKD, diabetes, prostate cancer, anemia
� Acute Exacerbation and/or Progression of Chronic Illness: This appears to be a subacute to chronic problem with some worsening
� Differential Diagnosis includes: Diabetic retinopathy, age-related vision change, macular degeneration, no evidence for stroke based on physical examination
AMOUNT AND/OR COMPLEXITY OF DATA TO BE REVIEWED AND ANALYZED
� I performed an independent evaluation of and my interpretation is:
EKG:
CT:
X-rays:
Laboratory Studies: Blood sugar is normal at 98
Other:
� Review of other/old records: The patient had brain MRI/MRI that showed no stenosis/aneurysm as of March 2023
� Clinical information was obtained by an independent historian: I spoke to the cousin over the phone who indicates patient has a history of brain injury�she requested for neurology to be involved
� Prescriptions/Medications Considered but not given:
� Further testing considered but not performed: CT imaging not indicated at this time as there are no focal findings any presents with bilateral blurred vision and has already been evaluated by [facility]
RISK OF COMPLICATIONS AND/OR MORBIDITY OR MORTALITY OF PATIENT MANAGEMENT
� Social determinants of health affecting care: Resides at [facility]
� Discussion with other providers: I briefly discussed case with Dr. Morin who agrees with outpatient follow-up
� Escalation of care including admission/observation vs risk of discharge considered: Unclear etiology of patient's symptoms, may be related to progression of age-related vision loss versus complications. Blood sugar is normal.
I notified neurology. I also spoke to the cousin over the phone.
Past History
Past History
ED Past Medical History: CAD, Cancer (Prostate CA), HTN, Hypercholesterolemia, NIDDM and Other (Aphasia, Psoriasis, Anemia, Ulcers)
ED Past Surgical History: Cardiac (Stent), Orthopedic (Right knee surgery), Tonsilectomy, Urological (Prostatectomy) and Other (Cataracts, Hernia repair)
Social History
Tobacco: Former smoker
Alcohol: None
Personal: Single
Living: [facility]
Phy Exam
Physical Exam
Physical Exam:
See HPI
Course
Orders/Labs/Results
Orders:
Orders
02/23/24 09:31
Bedside Glucose- Treatment ONCE
Vital Signs
Initial and Last Documented VS:
Initial Vital Signs
Temp Pulse BP Pulse Ox
98.2 F 51 131/73 99
02/23/24 09:12 02/23/24 09:12 02/23/24 09:12 02/23/24 09:12
Last Documented Vital Signs
Temp Pulse BP Pulse Ox
98.2 F 51 131/73 99
02/23/24 09:12 02/23/24 09:12 02/23/24 09:12 02/23/24 09:12
*Critical Care Note
Total Time (30-74mins, 75-104mins- exclusive of procedures): Not Applicable
ED Attending Note
-
Portions of this chart may have been created with voice recognition software.� Occasional wrong word or��sound alike� substitutions may have occurred due to the inherent limitations of voice recognition software.
Discharge Plan
Departure
Patient Disposition: Home (Routine Discharge)
Date of Disposition: 02/23/24
Time of Disposition: 09:51
Patient with high blood pressure during this ER visit?: Yes
Discharge Problem:
Blurred vision
Prescriptions:
No Action
acetaminophen [Tylenol] 325 mg Tablet
650 mg PO Q6HPRN PRN (Reason: mild pain/fever)
dicyclomine 20 mg Tablet
20 mg PO BID@0800,1700
ammonium lactate 12 % Cream
1 applic TOPICAL BID
rosuvastatin [Crestor] 40 mg Tablet
40 mg PO HS
Anti-Itch (menthol-camphor) 0.5-0.5 % Lotion
1 applic TOPICAL QID PRN (Reason: itch)
Rx Instructions:
apply to affected area
sertraline 50 mg Tablet
100 mg PO DAILY
loperamide 2 mg Capsule
2 mg PO DAILY
polyethylene glycol 3350 [Miralax] 17 gram Powder In Packet
17 g PO DAILY
ciclopirox 8 % Solution
1 applic TOPICAL DAILY
Rx Instructions:
apply to right first and second toenail
mirtazapine 15 mg Tablet
15 mg PO HS
ketoconazole 2 % cream
1 applic TOPICAL BID
Rx Instructions:
apply to bilateral feet and toes
Healthy Eyes SuperVision2 250-90-10-1 mg Capsule
1 cap PO DAILY
Pedinol
1 applic topical BID
Rx Instructions:
apply to bilateral feet and toes
cephalexin 500 mg capsule
500 mg PO BID 10 Days Qty: 20 0RF
aspirin 81 mg capsule
81 mg PO DAILY Qty: 30 0RF
Referrals:
Andrews Kimble MD [Active] - Follow up in 1 week
Brien Morin MD [Active] - Follow up in 1 week
UNKNOWN - PT DOES,NOT KNOW [Family Provider] -
Activity Restrictions/Additional Instructions:
Your blood sugar is normal at 98. I see no focal findings on examination to be consistent with a stroke. I reviewed old records including MRI imaging from last year. I spoke to your cousin�I then spoke to the neurologist (Dr. Morin) who does not
have anything else to add at this time. I have given you his contact information but I do recommend you follow-up with your fire prevention chief. I have also given you the contact information for a local fire prevention chief (Dr. Kimble).
Interventions
Interventions:
ED- Neurological Assessment Last Done: 02/23/24 10:07
ED-EENT Assessment Last Done: 02/23/24 10:07
Discharge Date and Time
Print Language: CAMBODIAN
[2024-02-23 09:15] VITALS: BP 131/73
[2024-02-23 09:18] VITALS: BMI 21.8
[2024-02-23 09:36] LABS: Glucose - Point of Care 98 mg/dl (70-99)
[2024-02-23 10:00] VITALS: BP 148/69
[2024-02-23 11:00] VITALS: BP 103/57
== END 2024-02-23 11:54 | disposition home or self-care (01) ==
LOC: EMR 09:11
PROVIDERS: EMERGENCY PHYSICIAN Emergency Medicine
DX: H53.8 Other visual disturbances (principal); I12.9 Hypertensive chronic kidney disease with stage 1 through stage 4 chronic kidney disease, or unspecified chronic kidney disease; D64.9 Anemia, unspecified; E11.36 Type 2 diabetes mellitus with diabetic cataract; Z87.891 Personal history of nicotine dependence; Z85.46 Personal history of malignant neoplasm of prostate; Z95.5 Presence of coronary angioplasty implant and graft; Z87.820 Personal history of traumatic brain injury
CPT/HCPCS: 99283; 82962

== ENCOUNTER 2024-04-06 11:45 | Emergency (ER) | payer MEDICARE, SELFPAY ==
[2024-04-06 11:46] VITALS: BMI 21.2
[2024-04-06 11:50] VITALS: BP 138/71
[2024-04-06 11:52] VITALS: BP 138/71
[2024-04-06 12:00] VITALS: BP 136/71
[2024-04-06 12:08] LABS: % Basophils 0.5 % (0-2); % Eosinophils 2.2 % (0-6); % Immature Granulocytes 0.2 % (0-0.5); % Lymphocytes 22.2 % (20.5-51.1); % Monocytes 10.6 % (1.7-9.3); % Neutrophils 64.3 % (42.2-75.2); Absolute Eosinophils 0.1 10^3/uL (0-0.7); Absolute Lymphocytes 1.3 10^3/uL (1.2-3.4); Absolute Monocytes 0.6 10^3/uL (0.1-0.6); Absolute Neutrophils 3.9 10^3/uL (1.4-6.5); Hematocrit 40.2 % (39.0-52.0); Hemoglobin 13.5 g/dL (13.0-18.0); Mean Corp Hgb Conc. 33.6 g/dL (33.0-37.0); Mean Corpuscular Hgb 29.4 pg (27.0-31.0); Mean Corpuscular Volume 87.6 fL (80.0-94.0); Mean Platelet Volume 10.1 fL (7.4-10.4); Nucleated Red Blood Cells % 0 % (-); Platelet Count 182 10^3/uL (130-400); Red Blood Cell Count 4.59 10^6/uL (4.70-6.10); Red Cell Dist. Width 12.9 % (11.5-14.5)
[2024-04-06 12:22] LABS: Urine Albumin Trace (Neg - Trace); Urine Bilirubin Negative (Negative); Urine Character Clear (Clear); Urine Color Yellow; Urine Glucose Negative (Negative); Urine Ketone Negative (Negative); Urine Leukocyte 2+ (Negative); Urine Nitrite Negative (Negative); Urine Occult Blood 4+ (Negative); Urine Urobilinogen Negative (Neg - 1+)
--- NOTE | 2024-04-06 12:24 | ED.GENMED ---
History of Present Illness
General
Chief Complaint: Urinary Symptoms
Source: patient
Time Seen by Provider: 04/06/24 12:07
Travel History
Have you had any contact with someone who has COVID-19?: No
Do you have any symptoms of coronavirus? Fever > 100 degrees, chills, cough, shortness of breath, sore throat, loss of taste or smell, muscle aches, or headache?: No
History of Present Illness
History of Present Illness:
73-year-old male with past medical history of encephalopathy, CAD, hypertension, hyperlipidemia, diabetes, CKD presenting to the emergency department for evaluation after he noticed a little bit of blood in his urine earlier this morning. Patient
states he has had this happen 2 other times for him requiring Russo catheter insertion. Denies any pain, back or flank pain, nausea, vomiting, fevers or infectious symptoms or any other concerns. Patient notes he is currently not on any
anticoagulants but states he has been on Plavix in the past. No other concerns at this time.
Past History
Past History
ED Past Medical History: CAD, Cancer (Prostate CA), HTN, Hypercholesterolemia, NIDDM and Other (Aphasia, Psoriasis, Anemia, Ulcers)
ED Past Surgical History: Cardiac (Stent), Orthopedic (Right knee surgery), Tonsilectomy, Urological (Prostatectomy) and Other (Cataracts, Hernia repair)
Social History
Tobacco: Former smoker
Alcohol: None
Drug: None
Personal: Single
Living: [facility]
Review of Systems
Review of Systems
All Other Systems: ROS reviewed and negative except as documented in HPI and ROS
Phy Exam
Physical Exam
Physical Exam:
GENERAL: Alert , in no apparent distress but does appear somewhat anxious
EYE: clear conjunctiva b/l
HEAD: NCAT
ENT: o/p clr, mmm.
CARDIAC: Regular rate and rhythm .
LUNGS: Clear breath sounds bilaterally, no acute respiratory distress, no wheezes/rales/rhonchi
ABDOMEN: Soft, without focal tenderness, no r/g, no cvat
NEUROLOGICAL: Alert and oriented
SKIN: Warm and dry, skin intact.
MUSCULOSKELETAL: well perfused.
PSYCH: Normal and appropriate interaction.
Scores
Heart Failure Risk
Heart Failure Risk Score: Not Applicable
Heart Score for Chest Pain Patients
STEMI patient?: Not applicable
Withdrawal Assessment of Alcohol
Withdrawal Assessment Completed?: Not applicable
Course
Orders/Labs/Results
Orders:
Orders
04/06/24 11:53
Complete Blood Count/With Diff Urgent
Comprehensive Metabolic Panel Urgent
04/06/24 12:15
Urinalysis Reflex To Culture Urgent
Date Specimen was Collected: 04/06/24
Time Specimen was Collected: 11:51
Urine Microscopic Reflex Cult Urgent
Urine Culture Urgent
POLO Source: U
Specimen Description:
Date Specimen was Collected: 04/06/24
Time Specimen was Collected: 11:51
04/06/24 12:21
CT Abd/pel Without Iv Or Oral Urgent
Comment:
Reason For Exam: hematuria
Abnormal Lab Results
04/06/24 04/06/24
11:53 12:15
RBC 4.59 L 10^6/uL
(4.70-6.10)
Monocytes % 10.6 H %
(1.7-9.3)
BUN 30 H mg/dl
(9-20)
Glucose 123 H mg/dl
(70-99)
Ur Occult Blood Reflex 4+ A
(Negative)
Leukocyte Esterase Rfl 2+ A
(Negative)
Urine RBC 30-40 A /HPF
(0-2)
Urine WBC (Reflex) >100 A /HPF
(0-5)
Urine Bacteria (Reflex) Moderate A
(Negative)
04/06/24 11:53
04/06/24 11:53
Vital Signs
Initial and Last Documented VS:
Initial Vital Signs
Temp Pulse Resp BP Pulse Ox
97.4 F 66 17 138/71 97
04/06/24 11:50 04/06/24 11:50 04/06/24 11:50 04/06/24 11:50 04/06/24 11:50
Last Documented Vital Signs
Temp Pulse Resp BP Pulse Ox
97.4 F 59 18 152/76 97
04/06/24 11:50 04/06/24 13:44 04/06/24 13:44 04/06/24 13:44 04/06/24 13:44
MDM/Problems Addressed
Differential Diagnosis Includes:
cystitis, prostatitis, urinary retention, malignancy
MDM/Problems Addressed:
73-year-old male presenting the emergency department for evaluation of painless hematuria that began this morning. History of similar requiring urinary catheter placement. Bedside bladder scan shows only 80 mL of urine and patient was able to
urinate without any difficulty. There was a small clot within the urine. Exam is otherwise reassuring and patient is hemodynamically stable. Will check labs, urinalysis and CT imaging. Reassessment following
*Radiology
Radiology exam reviewed: radiology read reviewed
*Pulse Oximetry
Patient hypoxic: no
*Critical Care Note
Total Time (30-74mins, 75-104mins- exclusive of procedures): Not Applicable
Data Reviewed
Review of Other/Old Records Reveals: Labs and Records
Source: patient and records
Patient Management
Escalation/DeEscalation of care consider admission/obs:
Patient CT scan shows diffuse bladder wall thickening and inflammatory stranding. Urinalysis is consistent with this with 2+ leukocytes and greater than 100 WBCs. Previous urine culture in December 2023 shows a urine culture growing Proteus
Mirabilis. This is sensitive to all antibiotics other than Macrobid. Patient without any allergies so we will prescribe Augmentin. 10-day course prescribed. Advised close follow-up with urology. Patient stable for discharge back to his home.
ED Attending Note
-
Portions of this chart may have been created with voice recognition software.� Occasional wrong word or��sound alike� substitutions may have occurred due to the inherent limitations of voice recognition software.
Discharge Plan
Departure
Patient Disposition: Home (Routine Discharge)
Date of Disposition: 04/06/24
Time of Disposition: 13:29
Patient with high blood pressure during this ER visit?: No
Discharge Problem:
Acute hemorrhagic cystitis
Instructions: Urinary Tract Infection, Adult (DC)
Prescriptions:
New
amoxicillin-pot clavulanate 875-125 mg tablet
1 tab PO BID 10 Days Qty: 20 0RF
No Action
acetaminophen [Tylenol] 325 mg Tablet
650 mg PO Q6HPRN PRN (Reason: mild pain/fever)
dicyclomine 20 mg Tablet
20 mg PO BID@0800,1700
ammonium lactate 12 % Cream
1 applic TOPICAL BID
rosuvastatin [Crestor] 40 mg Tablet
40 mg PO HS
Anti-Itch (menthol-camphor) 0.5-0.5 % Lotion
1 applic TOPICAL QID PRN (Reason: itch)
Rx Instructions:
apply to affected area
sertraline 50 mg Tablet
100 mg PO DAILY
loperamide 2 mg Capsule
2 mg PO DAILY
polyethylene glycol 3350 [Miralax] 17 gram Powder In Packet
17 g PO DAILY
ciclopirox 8 % Solution
1 applic TOPICAL DAILY
Rx Instructions:
apply to right first and second toenail
mirtazapine 15 mg Tablet
15 mg PO HS
ketoconazole 2 % cream
1 applic TOPICAL BID
Rx Instructions:
apply to bilateral feet and toes
Healthy Eyes SuperVision2 250-90-10-1 mg Capsule
1 cap PO DAILY
Pedinol
1 applic topical BID
Rx Instructions:
apply to bilateral feet and toes
cephalexin 500 mg capsule
500 mg PO BID 10 Days Qty: 20 0RF
aspirin 81 mg capsule
81 mg PO DAILY Qty: 30 0RF
Referrals:
Concepcion Camarena DO [Family Provider] -
Nikolay Lynch MD [Active] -
Interventions
Interventions:
*Risk Screen - Suicide Last Done: 04/06/24 11:48
*General Assessment Last Done: 04/06/24 11:48
*Neglect/Abuse Screening Last Done: 04/06/24 11:48
*ED COVID-19 Vaccine History Last Done: 04/06/24 11:48
ED-Male Genitourinary Assessment Last Done: 04/06/24 11:49
Discharge Date and Time
Print Language: GUAMANIAN
[2024-04-06 12:40] LABS: ALT (SGPT) 14 U/L (0-50); AST (SGOT) 20 U/L (17-59); Albumin 4.4 g/dl (3.5-5.0); Alkaline Phosphatase 55 U/L (38-126); Blood Urea Nitrogen 30 mg/dl (9-20); Calcium 9.5 mg/dl (8.4-10.2); Carbon Dioxide 26 mmol/L (22-30); Chloride 104 mmol/L (98-107); Estimated Creatinine Clearance 61 ml/min; Glucose 123 mg/dl (70-99); Potassium 4.2 mmol/L (3.5-5.1); Sodium 140 mmol/L (135-145); Total Bilirubin 0.6 mg/dl (0.2-1.3); Total Protein 6.9 g/dl (6.3-8.2); eGFR > 60.00
[2024-04-06 13:21] LABS: Urine Red Blood Cell 30-40 /HPF (0-2)
[2024-04-06 13:23] LABS: Urine White Cell >100 /HPF (0-5)
[2024-04-06 13:24] LABS: Urine Bacteria Moderate (Negative)
[2024-04-06 13:44] VITALS: BP 152/76
== END 2024-04-06 14:39 | disposition home or self-care (01) ==
LOC: EMR 11:45
PROVIDERS: EMERGENCY PHYSICIAN Emergency Medicine; FAMILY PHYSICIAN Hospitalist
DX: N30.01 Acute cystitis with hematuria (principal); I12.9 Hypertensive chronic kidney disease with stage 1 through stage 4 chronic kidney disease, or unspecified chronic kidney disease; E11.22 Type 2 diabetes mellitus with diabetic chronic kidney disease; N18.9 Chronic kidney disease, unspecified; E11.36 Type 2 diabetes mellitus with diabetic cataract; E78.00 Pure hypercholesterolemia, unspecified; I25.10 Atherosclerotic heart disease of native coronary artery without angina pectoris; Z79.02 Long term (current) use of antithrombotics/antiplatelets; Z85.46 Personal history of malignant neoplasm of prostate; Z87.891 Personal history of nicotine dependence; Z90.79 Acquired absence of other genital organ(s); Z95.5 Presence of coronary angioplasty implant and graft
CPT/HCPCS: 99284; 74176; 80053; 81003; 81015; 85025; 87077; 87086; 87186

== ENCOUNTER → 2024-05-05 11:34 | Outpatient (REF) | payer MEDICARE, SELFPAY ==
[2024-05-05 12:13] LABS: ALT (SGPT) 21 U/L (0-50); AST (SGOT) 24 U/L (17-59); Alkaline Phosphatase 48 U/L (38-126); Blood Urea Nitrogen 35 mg/dl (9-20); Calcium 9.6 mg/dl (8.4-10.2); Carbon Dioxide 27 mmol/L (22-30); Chloride 104 mmol/L (98-107); Glucose 85 mg/dl (70-99); HDL Cholesterol 49 mg/dl; LDL Cholesterol, Calculated 35 mg/dl; Potassium 4.1 mmol/L (3.5-5.1); Sodium 140 mmol/L (135-145); Total Bilirubin 0.6 mg/dl (0.2-1.3); Total Cholesterol 95 mg/dl (50-199); Total Protein 6.1 g/dl (6.3-8.2); Triglyceride 56 mg/dl (10-149); Very Low Density Lipoprotein 11 mg/dl (0-30); eGFR > 60.00
[2024-05-05 13:45] LABS: Glycohemoglobin (HgbA1c) 5.9 % (4.0-5.6)
== END ==
LOC: OLABMERCHI 11:34
PROVIDERS: ATTENDING PHYSICIAN Nurse Practitioner Gerontology; FAMILY PHYSICIAN Hospitalist
DX: E11.9 Type 2 diabetes mellitus without complications (principal)
CPT/HCPCS: 36415; 80053; 80061; 83036